=== PATIENT | male | born 1985 | race African-American/Black ===

== ENCOUNTER 2022-07-07 16:40 | Emergency (ER) | payer OTHER ==
[~2022-07-07] VITALS: Ht 172.7 cm; Wt 107.2 kg
[2022-07-07 18:12] VITALS: BP 150/74
== END 2022-07-07 18:14 | disposition home or self-care (01) ==
LOC: M ED 16:40
DX: S60.032A Contusion of left middle finger without damage to nail, initial encounter (principal); S60.413A Abrasion of left middle finger, initial encounter; W29.8XXA Contact with other powered hand tools and household machinery, initial encounter; Y92.009 Unspecified place in unspecified non-institutional (private) residence as the place of occurrence of the external cause; Y93.89 Activity, other specified; Y99.8 Other external cause status

== ENCOUNTER 2023-07-17 12:22 | Emergency (ER) | payer OTHER ==
[~2023-07-17] VITALS: Ht 177.8 cm; Wt 102.9 kg
[2023-07-17] MEDS: TETRACAINE 0.5% OPHTH SOLN 4ML OD ONE (14:20)
[2023-07-17] MEDS: FLUORESCEIN OPHTH 1MG STRIP OD ONE (15:15)
[2023-07-17] MEDS ORDERED: ERYT5OIN25 OD (15:38)
[2023-07-17] MEDS: ERYTHROMYCIN OPHTH OINT OD SCH (15:41)
[2023-07-17] MEDS: IBUPROFEN 800 MG TAB PO ONE (15:41)
[2023-07-17 15:45] VITALS: BP 165/97; TEMP 97.3; O2SAT 98
[2023-07-17] MEDS ORDERED: IBUP-1022 PO (19:06)
[2023-07-17] MEDS ORDERED: ACET-653 PO (19:09)
== END 2023-07-17 15:58 | disposition home or self-care (01) ==
LOC: M ED 12:22
DX: H10.211 Acute toxic conjunctivitis, right eye (principal); Y92.9 Unspecified place or not applicable; Y93.E5 Activity, floor mopping and cleaning; Y99.0 Civilian activity done for income or pay; Z79.1 Long term (current) use of non-steroidal anti-inflammatories (NSAID); Z79.2 Long term (current) use of antibiotics